=== PATIENT | female | born 1985 | race Hispanic/Latino ===

== ENCOUNTER → 2020-09-15 | Outpatient (CLI) | payer OTHER ==
[~2020-09-15] MED LIST: IOHEXOL-350 50ML VIAL IV ONE
== END | disposition home or self-care (01) ==
LOC: RAH 08:12
PROVIDERS: ATTEND Obstetrics & Gynecology
DX: N91.4 Secondary oligomenorrhea (principal); Z90.79 Acquired absence of other genital organ(s)
CPT/HCPCS: 36415; 58340; 74740; 84703; Q9967

== ENCOUNTER 2021-10-07 00:16 | Emergency (ER) | payer BC, OTHER ==
[~2021-10-07] VITALS: Ht 152.4 cm; Wt 101.2 kg
[2021-10-07] MEDS ORDERED: FUROSEMIDE 20MG VIAL IV ONE (01:00)
[2021-10-07] MEDS ORDERED: HYDRALAZINE 20MG/ML VIAL IV ONE (01:00)
[2021-10-07 01:07] LABS: BASOPHILS % (AUTO) 0.1 % (0.0-5.0); EOSINOPHILS % (AUTO) 1.7 % (0.0-8.0); HEMATOCRIT 30.3 % (36-48); LYMPHOCYTES % (AUTO) 32.4 % (21.0-51.0); MEAN CORPUSCULAR HEMOGLOBIN 27.5 pg (27.0-33.0); MEAN CORPUSCULAR VOLUME 83.2 fL (79-99); MONOCYTES % (AUTO) 8.6 % (3.0-13.0); NEUTROPHILS % (AUTO) 56.7 % (40.0-77.0); PLATELET COUNT (AUTO) 300 K/uL (130-400); RED BLOOD CELL COUNT(AUTO) 3.64 MIL/uL (4.00-5.50); RED CELL DISTRIBUTION WIDTH 13.2 % (11.0-15.5); WHITE BLOOD COUNT (AUTO) 8.3 K/uL (4.8-10.8)
[2021-10-07 01:25] LABS: CREATININE 0.6 mg/dL (0.5-1.5); POTASSIUM 4.1 mmol/L (3.5-5.1)
[2021-10-07 01:30] LABS: ALBUMIN 2.1 g/dL (3.5-5.0); TOTAL PROTEIN, SERUM 6.7 g/dL (6.0-8.3)
[2021-10-07] MEDS ORDERED: IBUPROFEN 800 MG TAB PO ONE (02:30)
[2021-10-07] MEDS ORDERED: FURO-152 PO (02:30)
[2021-10-07] MEDS ORDERED: LABE100T5 PO (02:30)
[2021-10-07 02:39] VITALS: BP 145/87
== END 2021-10-07 02:45 | disposition home or self-care (01) ==
LOC: EDH 00:16
DX: O16.5 Unspecified maternal hypertension, complicating the puerperium (principal); O89.4 Spinal and epidural anesthesia-induced headache during the puerperium
CPT/HCPCS: 99284; 96374; 96375; 84484; 80053; 85025; 36415; 93005; J0360; J1940